=== PATIENT | male | born 1985 | race Caucasian/White ===

== ENCOUNTER → 2017-06-30 | Day surgery (SDC) | payer OTHER ==
[~2017-06-30] VITALS: Ht 172.7 cm; Wt 73.9 kg
== END | disposition disaster alternative care site (69) ==
LOC: GPOC 06-28 10:00 → GEND 08:21
PROC: 0DBL8ZX Excision of Transverse Colon, Via Natural or Artificial Opening Endoscopic, Diagnostic (ICD-10-PCS; principal; 2017-06-30)
DX: K63.5 Polyp of colon (principal); Z98.890 Other specified postprocedural states
CPT/HCPCS: J2001; J7030

== ENCOUNTER → 2017-07-04 | Outpatient (CLI) | payer OTHER | END | disposition disaster alternative care site (69) | LOC: GRAD 07:30 | DX: R10.9 Unspecified abdominal pain (principal) ==